=== PATIENT | female | born 2000 | race Asian ===

== ENCOUNTER 2024-11-14 19:22 | Emergency (ER) | payer OTHER, SELFPAY ==
--- NOTE | ~2024-11-14 | CT_ITS ---
EXAMINATION: CT brain wo con DATE: 11/14/2024 20:38 INDICATION: Head injury . TECHNIQUE: Computed tomography (CT) of the head was performed without intravenous contrast. The mA wa s adjusted according to patient size. Iterative reconstruction technique was employed. The dose-lengt h product was 605.33 mGy-cm. COMPARISON: None. FINDINGS: No acute intracranial hemorrhage or extra-axial fluid collection. No hydrocephalus, mass, or herniation. No acute ischemic infarct. Unremarkable dural venous sinus attenuation. No acute osseous abnormality. Left posterior scalp lipoma. Minimal right ethmoid mucosal thickening, the remaining aerated spaces are clear. IMPRESSION: No acute intracranial process. Reviewed, dictated and finalized at location K. ITY MEASUREMENT SPECIALIST
--- NOTE | ~2024-11-14 | CT_ITS ---
EXAMINATION: CT cervical spine wo con DATE: 11/14/2024 20:40 INDICATION: Neck pain status post head injury TECHNIQUE: Computed tomography (CT) of the cervical spine was performed without intravenous contrast. Automated exposure control and iterative reconstruction technique were employed. The dose-length pro duct was 136.40 mGy-cm. COMPARISON: None. FINDINGS: Vertebral Body Alignment: Intact. Reversal of the normal cervical lordosis. Craniocervical and atlantoaxial alignment: No significant degenerative change. Alignment intact. Osseous structures/fracture: No evidence of a lytic or blastic process in the visualized spine. No e vidence of acute fracture. Cervical soft tissues: The paraspinal soft tissues planes are maintained. Degenerative changes: No significant degenerative changes. IMPRESSION: No acute fracture or traumatic malalignment in the cervical spine. Reviewed, dictated and finalized at location K. INE KEY CUSTOMER LEADER
[2024-11-14 19:29] VITALS: BP 111/76; PULSE 81; RESP 16; TEMP 36.2; O2SAT 100
--- NOTE | 2024-11-14 20:05 | PC.NURSE ---
pt in c-collar
--- NOTE | 2024-11-14 20:17 | ED_ITS ---
HPI - General Adult General Chief complaint: Head Injury Stated complaint: i think i have a concussion Time Seen by Provider: 11/14/24 20:03 History of Present Illness HPI narrative: Patient 24-year-old female who presents emergency department with chief complaint of head injury and neck pain. Patient reports she was playing soccer at her head against a wall and reports that she had a tingling sensation in her neck. Patient denies bowel or bladder incontinence denies weakness in her arms or legs. Patient reports that she has continued out little bit headache afterwards and decided to come the emergency department as she was concerned she may have a concussion Related Data Allergies Allergy/AdvReac Type Severity Reaction Status Date / Time No Known Allergies Allergy Verified 11/14/24 19:24 Review of Systems Review of Systems: A 10 system review of systems was completed on the patient and is negative except for what is stated in the HPI. Nursing and ancillary documentation was reviewed. Exam Narrative: GENERAL: Well-appearing, well-nourished, and in no acute distress. HEAD: Normocephalic, atraumatic. EYES: PERRLA and EOMI. ENT: Nares clear, no rhinorrhea or epistaxis. Mucous membranes moist. NECK: Supple. CHEST: Clear to auscultation. No respiratory distress. HEART: Regular rate and rhythm. No murmur heard. Normal peripheral pulses. ABDOMEN: Soft, nontender, nondistended, normal active bowel sounds. EXTREMITIES: Normal range of motion. No edema. SKIN: Warm, dry, no rash. NEURO: No focal deficits. Alert and oriented x3. PSYCH: Normal mood and affect. Course Vital Signs Vital signs: Vital Signs Temperature 36.2 C L 11/14/24 19: Pulse Rate 81 11/14/24 19:29 Respiratory Rate 16 11/14/24 19:29 Blood Pressure 111/76 11/14/24 19:29 Pulse Oximetry 100 11/14/24 19:29 Temperature 36.2 C L 11/14/24 19:29 Pulse Rate 81 11/14/24 19:29 Respiratory Rate 16 11/14/24 19:29 Blood Pressure 111/76 11/14/24 19:29 Pulse Oximetry 100 11/14/24 19:29 Medical Decision Making MDM Narrative Medical decision making narrative: Differential diagnosis includes concussion, cervical spine fracture CT head was negative CT C-spine was negative Vital Signs Vital Signs: Vital Signs Temperature 36.2 C L 11/14/24 19:29 Pulse Rate 81 11/14/24 19:29 Respiratory Rate 16 11/14/24 19:29 Blood Pressure 111/76 11/14/24 19:29 Pulse Oximetry 100 11/14/24 19:29 Temperature 36.2 C L 11/14/24 19:29 Pulse Rate 81 11/14/24 19:29 Respiratory Rate 16 11/14/24 19:29 Blood Pressure 111/76 11/14/24 19:29 Pulse Oximetry 100 11/14/24 19:29 Discharge Plan Discharge Clinical Impression: Head injury, Cervical strain Patient Disposition: Home, Self-Care Condition: Stable Instructions: Antibiotic Form, Cervical Strain (ED), Head Injury (ED) Patient Language: Surinamese Follow-up/Referrals: PHYSICIAN NOT ON STAFF,NONSTAFF [Primary Care Provider] - Time of Disposition: 20:53
--- NOTE | 2024-11-14 20:32 | PC.NURSE ---
pt being ambulated to ct at this time with health and wellness instructor. no distress noted. pt refused wheelchair.
--- OUTSIDE RECORDS SUMMARY | 2024-11-14 21:02 | XMS_ITS | Continuity of Care Document ---
Author Organization [facility] Address [address] [place] [address] Phone Care Team Providers Care Athletic Instructor Name Role Phone Lea Ontiveros OT Unavailable Unavailable Procedures Procedure Date Identified as unhealthy alcohol user Oct Identified as unhealthy alcohol user rcv d counseling Unhealthy alcohol via screening rcvd cou nseling OT Evaluation Low Complexity Therapeutic Activities Neuromuscular Re-Ed Therapeutic Exercise Manual Therapy Hot or Cold Pack Advance Directives Directive Yes / No Effective Date File Name No Information Encounters Encounter Description Practice Location Reason(s) For Visit Diagnoses Date Provider Providers Copied on Encounter [facility], [place], [place], [id number], tel:[phone] [place] No Information 5 Rama Tate. . [facility], [address], [place], [place], [id number], tel:[phone] [place] No Information 5 Rama Tate. . Referring Provider: Sunshine Keane, [address] [place] [address] [address], [place], [address]. tel:[phone] Family History Family Member Type Diagnosis Age At Onset No Information Payers Payer name Insurance type Covered alliance party ID Julio cantu(s) [employer] CI [id number] Social History Type Description Quantity Date Captured Comments Sex Female Smoking Status No Information Chief Complaint And Reason For Visit No Information Reason For Referral Reason For Referral No Information Plan Of Treatment Date Type Action Status Appointment Marline Ferraro BOOKED Appointment Marline Ferraro BOOKED Appointment Marline Ferraro BOOKED Appointment Marline Ferraro BOOKED Appointment Marline Ferraro BOOKED Appointment Marline Ferraro BOOKED History Of Present Illness Encounter Date Complaint History Of Prese nt Illness No Information Functional Status Date Functional Assessmen t No Information Instructions Date Instruction Additional Infor mation No Information Assessments Type Assessment Date No Information Patient Care Teams Name Effective Dates (start - stop) Status Members No Information
--- OUTSIDE RECORDS SUMMARY | 2024-11-14 21:02 | XMS_ITS | Continuity of Care Document ---
Author Organization [facility] Address [address] [place] [address] Care Team Providers Care Vice President Of Human Resources Name Role Phone KITA BENNETTY Primary Care Provider Assessment No assessment recorded. Plan of Treatment Reminders Order Date Submit Date Provider Last Modified By Organization Details Last Modified Time Details Appointments Imaging 5.PRO 2024 02:30P M Radiology Not available Not available [facility] 04:00P M Dr. Kayley Martinez Not available Not available [facility] 15.EST 2024 11:15A M Karina Fischer Not available Not available Not available [facility] Visit 15.EST 2024 11:30A M Dr. Bel Coto Not available Not available Not available Lab None recorde d. Referral None recorde d. Procedures None recorde d. Surgeries None recorde d. Imaging None recorde d. Medication Orders None recorde d. Patient TargetsNo targets recorded. Patient InstructionsNo instructions recorded. Reason for Referral None Reported. 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 ELECTROMYOGRAPHIC TECHNICIAN [address] [place] [address], [phone], [facility] 5 13:18:46 Severe depression 699813017 Active 2023 Bel shea MD [address] [place] [address], [phone], [facility] 4 15:01:31 Vulvovagini tis 45852677 [facility] 4 15:31:27 Ingrowing nail 725088559 Active 2023 Sunshine Mcgrath, DPM [address] [place] [address], [phone], [facility] 4 11:13:51 Ingrowing toenail 207979367 Active 2023 Sunshine Mcgrath, DPM [address] [place] [address], [phone], [facility] 4 10:18:16 Postsurgica l menopause 392767805 Active 2024 [facility] 5 14:54:11 Problem Notes None recorded. Procedures Surgical History Date Name Laterality Status Provider Name and Address Organization Details Recorded Time 07/04/20 24 Partial Matrixectomy MS completed Sunshine Mcgrath, DPM [address] [place] [address], [phone], [facility] 07/04/2024 11:13:44 hysterectomy [address] Neal [facility] 06/14/2024 14:46:25 Imaging Results None recorded. Procedure Notes None recorded. Medical Equipment None Reported. Allergies No known drug allergies Medications Name Sig Start Date Stop Date Status Note LastModified by Organization Details LastModified Time silver sulfadiazin e 1 % topical cream APPLY TO AFFECTED AREA TWICE A DAY active Not Available Not Available No t Available escitalopra m 10 mg tablet TAKE 1 TABLET BY MOUTH EVERY DAY 04/25 completed Not Available Not Available Not Available escitalopra m 20 mg tablet TAKE 1 TABLET BY MOUTH EVERY DAY active Not Available Not Available No t Available Vitals Date Recorded Body height Provider Name an d Address Organization Details Last Updated DateTime 11/13/2024 162.56 cm Edi Dotson [facility] 11/13/2024 12:09:50 Social History Question Answer Notes LastModified by Organizat ion Details LastModified Time Tobacco Smoking Status Never [facility]oker [facility]/14/2024 14:33:04 Do You Have An Advance Directive? No [email or web address] Information not available 05/04/2024 What Is Your Level Of Alcohol Consumption? Occasional [email or web address] Information not available 05/04/2024 How Many Times Per Week Do You Consume Alcohol? 1-2 Times Per Week [email or web address] Information not available 05/04/2024 What Is Your Level Of Caffeine Consumption? Occasional [email or web address] Information not available 05/04/2024 Are You Currently Employed? 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 3-4 Times Per Week [email or web address] Information not available 05/04/2024 Do You Have A Medical Power Of Java Web Engineer? No [email or web address] Information not available 05/04/2024 What Was The Date Of Your Most Recent Tobacco Screening? 05/11/2024 [email or web address] Information not available 05/04/2024 What Is Your Relationship Status? Single [email or web address] Information not available 05/04/2024 Do You Use Any Illicit Or Recreational Drugs? No [email or web address] Information not available 05/04/2024 Sex: Unknown Functional Status Question Answer Note LastModified by Organization D etails LastModified Time What is your exercise level? Moderate [email or web address] Information not available 05/04/2024 Mental Status None recorded. Family History Relationship Description Onset Age of this Age Resolved Age Notes LastModified by Organization Details LastModified Time Father No current problems or disability [email or web address] Not available 05/04 12:25:54 Mother No current problems or disability [email or web address] Not available 05/04 12:25:54 Notes:Patient adopted - fami ly hx unknown Medical History Condition Response High Blood Pressure N COPD N Depression N Anxiety Disorder N Arthritis N Cancer N Stroke N Fibromyalgia N Kidney Disease N Attention-deficit Hyperactivity Disorder N Thyroid Problems N Anemia N Diabetes N Bleeding Disorder N Hyperlipidemia N Asthma N Seizures N Heart Disease N Osteoporosis N Gynecological HistoryNo gynecological history recorded. Obstetrics History GPAL:G 0 P 0 0 0 0 Past Encounters Encounter ID Performer Location Encounter Start Date Encounter Closed Date Diagnosis/Indication Diagnosis SNOMED-CT Code Diagnosis ICD10 Code Diagnosis Note [id number] Karina Fischer APRN, DNP. [facility] [place] [facility] [address] [place] [address] 11/13/2024 12:04:11 11/13/2024 12:24:27 Impacted cerumen of bilateral ears 8653895888 [id number] H61.23 Cerumen removed under microscopy . Patient tolerated procedure well. Discussed water precaution s and not using Q tips to clean the ears. Patient will follow up in 6 months. They are welcome to call the office if they develops problems sooner. Health Concerns Section Related Observation LastModified by Organization Detai ls LastModified Time None Recorded Concern Status LastModified by Organization Details LastModified Time None Recorded Payers Encounter Date Sequence Insurance Name Policy Number Policy Naik Covered Member ID Naik Member ID Guarantor Name 11/13/2024 1 [facility] BEN[employer] PLAN [id number] Margaret Ferraro [id number] SELENE Ferraro Notes Date Note Type Note Provider Name and Address Organization Details Recorded Time 11/13/2024 text/html 24-year-old female seen in ENT for an ear cleaning. She denies any otalgia or otorrhea. She denies any decline in her hearing. Karina Fischer APRN, DNP. ELECTROMYOGRAPHIC TECHNICIAN [address] [place] [address], [phone], [facility] 11/13/2024 16:16:07 OBGyn Episode No OBEpisode recorded.
--- OUTSIDE RECORDS SUMMARY | 2024-11-14 21:02 | XMS_ITS | Data Portability ---
Author Organization [facility], [address] Neurology ([place]) Address [address] [place] [address] Care Team Providers Care Professional Organizer Name Role Phone KIT BENNETT Primary Care Provider Assessment Encounter Date Assessment Date Assessment LastModified by Organization Details LastModified Time 09/26/2024 09/26/2024 ASSESSMENT: This is a 24-year-old with a history of a stage IB low-grade endometrial stromal sarcoma now approximately 2 years out from treatment, with indeterminate CT scan findings. PLAN: 1. Low-grade endometrial stromal sarcoma: I reviewed her CT scan report with her today. I explained that overall findings appear reassuring. There is 1 minimally enlarged lymph nodes within the mesentery along the right lower quadrant and as such we will plan to repeat CT scan at 3 months. The patient s CA-125 level from today is pending. 2. History of iron deficiency anemia: The patient is now off supplementation. The patient was reassured that her recent iron panel was within normal limits. 3. Surgical menopause: The patient was on escitalopram but has now stopped using it and does not report any recurrence of her hot flashes. She also reports that she feels her anxiety is being well controlled with her current management strategies and would prefer not to restart it. As such, we will continue with observation. The patient was previously counseled on taking multivitamins and calcium on a daily basis. She will be referred to a health analyst and bone health clinic at an early age secondary to her early menopause status. Marline voiced understanding and was in agreement. We will plan to see her back in [address] scan. [email or web address] [email or web address] Not available 09/27/2024 14:54:31 Plan of Treatment Reminders Order Date Submit Date Provider Last Modified By Organization Details Last Modified Time Details Appointments Imaging 5.PRO 2024 02:30P M Radiology Not available Not available Not available Est[facility] shed Patient 20.EST 2024 04:00P M Dr. Kayley Martinez Not available Not available Not available Estabjessa shed Patient 15.EST 2024 11:15A M Karina Fischer [...] instructions recorded. Reason for Referral None Reported. Results Created Date Observation Date Name Description Value Unit Range Abnormal Flag Note LastModifiedBy Organization Detail LastModifiedTime 09/26/19 25 09/26/2024 ca 125, serum Ca 125 4 U/mL <2-35 This test is perfo rmed on a HITbillse ns Atell ica violet zer. Since there are not exist ing stand sofia refer ence units , users shoul d not make emily rison s lindsay en janie ds. Not Available [place] [facility] [address], [address], 09/26/2024 16:57:42 09/26/19 25 09/26/2024 CT, abdom en + pelvi s, w/ contr ast [address] [address] Teleph wuv Name: Chino Titus [id number] am Date: 2024 Age: 24Phys ician: Iris bhandari MD, Kayley : 2000Ex aminat ion: CT CHEST/ ABD/PE L W EXAM: CT ABD/PE L W, CT CHEST W, Isovue 370, per ml HISTOR Y: Endome trial stroma l sarcom a. Myomec anita in [facility] er 2021. FINDIN GS: Axial CT images of the chest, abdome n, and pelvis were obtain ed after uneven tful IV initia tion 100 mL Isovue -370 given in the right antecu bital fossa. Compar ovi 11/23/19 24. Thorac ic aorta and great vessel s normal . Heart normal . No suprac lavicu lar, axilla ry, medias tinal, or hilar adenop athy. No pleura l effusi on. Lungs are clear and expand ed. Centra l airway s are clear. Liver, gallbl adder, spleen , pancre as, adrena l glands , and kidney s normal . Stomac h and small bowel normal . Append ix normal . Colon normal . No bowel obstru ction or signif icant stool burden . Bladde r normal . Uterus normal . There is no adnexa l mass. Normal vascul ar enhanc ement. No mass, free fluid, or inflam matory strand ing. Normal vascul ar enhanc ement. There is a 1 cm right lower quadra nt mesent simran lymph node new from prior along with 2 additi onal less than 1 cm lymph nodes in the right lower quadra nt slight ly increa sed in size from prior. No acute osseou s findin g. IMPRES ALEX: 1. No acute findin g or eviden ce of metast atic diseas e in the chest. 2. Single minima lly enlarg ed right lower quadra nt mesent simran lymph node from prior. Recomm end a follow -up CT in 6 months . Electr onical ly signed in [facility] by: KIAH HALE MD on:09/26 12:13 PM cc: Page PAGE 1 of [facility] ES 1 nmaczura Sc Only - Sc Radiology [address] [place], [address], 09/26/2024 15:34:53 09/26/19 25 09/26/2024 CT, chest , w/ contr ast [address] [address] Teleph one [phone] Name: Chino Titus [id number] am Date: 2024 Age: 24Phys ician: Iris bhandari MD, Kayley : 2000Ex aminat ion: CT CHEST/ ABD/PE L W EXAM: CT ABD/PE L W, CT CHEST W, Isovue 370, per ml HISTOR Y: Endome trial stroma l sarcom a. Myomec anita in [facility] er 2021. FINDIN GS: Axial CT images of the chest, abdome n, and pelvis were obtain ed after uneven tful IV initia tion 100 mL Isovue -370 given in the right antecu bital fossa. Compar ovi 11/23/19 24. Thorac ic aorta and great vessel s normal . Heart normal . No suprac lavicu lar, axilla ry, medias tinal, or hilar adenop athy. No pleura l effusi on. Lungs are clear and expand ed. Centra l airway s are clear. Liver, gallbl adder, spleen , pancre as, adrena l glands , and kidney s normal . Stomac h and small bowel normal . Append ix normal . Colon normal . No bowel obstru ction or signif icant stool burden . Bladde r normal . Uterus normal . There is no adnexa l mass. Normal vascul ar enhanc ement. No mass, free fluid, or inflam matory strand ing. Normal vascul ar enhanc ement. There is a 1 cm right lower quadra nt mesent simran lymph node new from prior along with 2 additi onal less than 1 cm lymph nodes in the right lower quadra nt slight ly increa sed in size from prior. No acute osseou s findin g. IMPRES ALEX: 1. No acute findin g or eviden ce of metast atic diseas e in the chest. 2. Single minima lly enlarg ed right lower quadra nt mesent simran lymph node from prior. Recomm end a follow -up CT in 6 months . Electr onical ly signed in [facility] by: KIAH HALE MD on:09/26 12:13 PM cc: Page PAGE 1 of [facility] 1 nm[facility]zura Sc Only - Sc Radiology [address] [place] [address], [id number], 09/26/2024 15:34:53 Result Notes None recorded. Problems Name Problem SNOMED Code Status Onset Date Resolution Date Notes Provider Name and Address Organization Details Recorded Time Endometrial stromal sarcoma 768471840 Active 2023 Michelle Rothman null, [facility] 4 17:52:47 Fatigue 13181315 Active 2023 Yanni Maddox null, [facility] 4 11:43:32 Endometrioi d carcinoma of endometrium Active 2023 Rufino Renae null, [facility] 4 14:35:00 Ingrowing nail of toe of left foot 8939845346166 9107 Active 2023 Sunshine Mcgrath, DPM [address] [place] [address], [address], [facility] 4 12:52:29 Impacted cerumen of bilateral ears 0783483132753 108 Active 2023 Karina Fischer, CENTRAL COMMUNICATIONS SPECIALIST, DNP. [employer] [address] [place] [address], [address], [facility] 5 13:18:46 Severe depression 401451359 Active 2023 Bel shea MD [address] [place] [address], [address], [facility] 4 15:01:31 Vulvovagini tis 32664688 Active 2023 Mercedes Garcia null, [facility] 4 15:31:27 Ingrowing nail 325848369 Active 2023 Sunshine Mcgrath, DPM [address] [place], [address], [facility] 4 11:13:51 Ingrowing toenail 221472933 Active 2023 Sunshine Mcgrath, DPM [address] [place] [address], [address], [facility] 4 10:18:16 Postsurgica l menopause 245445954 Active 2024 [facility] 14:54:11 Problem Notes None recorded. Procedures Surgical History Date Name Laterality Status Provider Name and Address Organization Details Recorded Time 07/04/20 Partial Matrixectomy MS completed Sunshine StewartChinedu Delgadoes, DPM [address] [place] [address], [phone], [place] [facility] 07/04/2024 11:13:44 hysterectomy completed Jaclynchrist Neal [facility] 06/14/2024 14:46:25 Imaging Results Imaging Date Name Status LastModified by Organiz ation Details LastModified Time 09/26/2024 CT, abdomen + pelvis, w/ contrast completed [facility] Sc Only - Sc Radiology [address] [place] [address], [id number], 09/26/2024 15:34:53 09/26/2024 CT, chest, w/ contrast completed nm[facility]zura Sc Only - Sc Radiology [address] [place] [address], [id number], 09/26/2024 15:34:53 Procedure Notes None recorded. Medical Equipment None [...] t Available Vitals Date Recorded Body height Oxygen saturation Oxygen saturation in Arterial blood by Pulse oximetry Heart rate Body temperature Body mass index (BMI) Body weight Systolic blood pressure Diastolic blood pressure Provider Name and Address Organization Details Last Updated DateTime 5 162.56 cm 98 % 98 % 73 /min 98.8 [degF] 21.3 kg/m2 03304.4 5 g 102 mm[Hg] 58 mm[Hg] Michelle Rothman [facility] 5 14:15:32 Date Recorded Body height Provider Name an d Address Organization Details Last Updated DateTime 11/13/2024 162.56 cm Edi Dotson [facility] 11/13/2024 12:09:50 Social History Question Answer Notes LastModified by Organizat ion Details LastModified Time Tobacco Smoking Status Never Smoker Jaclyn Neal crystal, [facility] 06/14/2024 14:33:04 Do You Have An [...] not available 05/04/2024 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 3-4 Times Per Week [email or web address] Information not available 05/04/2024 Do You Have A Medical Power Of Air Export Agent? No [email or web address] Information not available 05/04/2024 What [...] ly hx unknown Medical History Condition Response Attention-deficit Hyperactivity Disorder N High Blood Pressure N Thyroid Problems N COPD N Depression N Anemia N Diabetes N Anxiety Disorder N Bleeding Disorder N Arthritis N Hyperlipidemia N Cancer N Stroke N Asthma N Seizures N Heart Disease N Fibromyalgia N Osteoporosis N Kidney Disease N Gynecological HistoryNo gynecological history recorded. Obstetrics History GPAL:G 0 P 0 0 0 0 Past Encounters Encounter ID Performer Location Encounter Start Date Encounter Closed Date Diagnosis/Indication Diagnosis SNOMED-CT Code Diagnosis ICD10 Code Diagnosis Note [id number] Kayley Martinez MD [address] Gynecolog ic Oncology ([place]) [address] [place] [address] 04/25/2024 10:56:40 05/02/2024 04:51:56 Endometrioid carcinoma of endometrium 7704432867 C54.1 [id number] Sunshine Mcgrath DPM [address] Podiatry ([place]) [address] [place] [address],[address] [place] [address] 05/11/2024 11:56:47 05/11/2024 12:53:42 Ingrowing nail of toe of left foot 1578172019 7576067 L60.0 [id number] Karina Fischer, CENTRAL COMMUNICATIONS SPECIALIST, DNP. [employer] [facility] 4[facility] ENT ([place]) [address] [place] [address] 05/18/2024 11:34:11 05/18/2024 12:55:15 Impacted cerumen of bilateral ears 6531531974 565945 H61.23 Cerumen removed under microscopy . Patient tolerated procedure well. Discussed water precaution s and not using Q tips to clean the ears. Patient will follow up in 6 months. They are welcome to call the office if they develops problems sooner. [id number] Charlene Draper [address] OBGYN ([place]) [address] [place] [address],[address] [address] 06/14/2024 14:23:36 06/14/2024 15:19:16 Severe depression 687162846 F32.2 Gynecologi c examination 06681458 Z01.419 Additional diagnosis detail: Encounter for gynecologi charley examinatio n Vulvovaginitis 47730652 N76.89 [id number] Sunshine Mcgrath DPM [address] Podiatry ([place]) [address] [place] [address] 07/04/2024 09:47:54 07/04/2024 11:14:47 Ingrowing nail 506617250 L60.0 Additional diagnosis detail: Ingrown nail [id number] Sunshine Mcgrath, DPM [address] [facility]ry ([place]) [address] [place] [address] 07/18/2024 16:13:40 07/18/2024 16:39:35 Ingrowing nail 021772776 L60.0 Additional diagnosis detail: Ingrown nail [id number] Sunshine Mcgrath, DPM [address] Podiatry ([place]) [address] [place] [address] 08/01/2024 12:19:19 08/01/2024 13:05:53 Ingrowing nail of toe of left foot 2063172105 4932035 L60.0 [id number] Sunshine Mcgrath, DPM 800 [facility] Podiatry ([place]) [address] [place] [address],[address] [place] [address] 08/15/2024 09:53:38 08/15/2024 10:18:50 Ingrowing toenail 200342850 L60.0 [id number] Kayley Martinez MD [address] Gynecolog ic Oncology ([place]) [address] [place] [address] 09/26/2024 13:59:17 10/05/2024 07:59:39 History of malignant neoplasm 434359339 Z85.42 History of anemia 160615 002 Z86.2 Postsurgic al menopause 810482494 E89.40 [id number] Karina Fischer, CENTRAL COMMUNICATIONS SPECIALIST, DNP. [employer] [address] ENT ([place]) [address] [place] [address] 11/13/2024 12:04:11 11/13/2024 12:24:27 Impacted cerumen of bilateral ears 0477141834 506136 H61.23 Cerumen removed under microscopy . Patient [...] by Organization Details LastModified Time None Recorded Advance Directives Directive N: Payers Encounter Date Sequence Insurance Name Policy Number Policy Naik Covered Member ID Naik Member ID Guarantor Name 07/18/2024 1 [employer] [facility] [employer] [id number] Margaret Ferraro [id number] OI Roberttatum Ferraro 08/01/2024 1 [employer] [facility] [employer] [id number] Margaret Ferraro [id number] OI Marline Ferraro 08/15/2024 1 [employer] [facility] [employer] [id number] Margaret Ferraro [id number] OI Marline Ferraro 09/26/2024 1 [facility] [id number] Margaret Ferraro [id number] OI Marline Ferraro 11/13/2024 1 [facility] BENEFITS PLAN [id number] Margaret Ferraro [id number] OI Roberttatum Ferraro Notes Date Note Type Note Provider Name and Address Organization Details Recorded Time 4 text/html Marline Alex a 24 year oldfemalepresenting for care. Sunshine Rangel Alcides, OLGA [address] [place] [address], [phone], [facility] 07/18/2024 16:35:21 4 text/html Marline Alex a 24 year oldfemalepresenting for care. Sunshine Rangel OLGA Mcgrath [address] [place] [address], [phone], [facility] 08/15/2024 10:18:29 5 text/html This is a 24-year-old female with a stage IB low-grade endometrial stromal sarcoma who presents today for a 4-month surveillance visit and review of CT scan. Today in the office, Marline is here by herself. She has her mom and dad on speaker phone. In general, she reports that she has been doing well. She denies any issues with vaginal bleeding or discharge. She has intermittent mild twinges of pain along her right side that she attributes to her scar. Otherwise, she has no nausea or vomiting. She does state that she has not been taking the escitalopram but does feel that her anxiety levels have been well controlled and she has been doing lifestyle modifications to help manage this. She denies any issues with hot flashes. Onc Therapy 08/31/22: EL/ abdominal myomectomy Pathology: low grade endometrial stromal sarcoma 09/10/22: CT c/a/p shows large surgical defect involving the left lateral portion of the uterus with postoperative fluid collection and adjacent ascites, no peritoneal disease or metastatic lymphadenopathy 10/09/22: EL/JOHNNY/BSO/SHARON Pathology: low grade stromal sarcoma with patchy myometrial involvement, measuring 4.2 cm, + LVSI 04/27/23: CT c/a/p shows no evidence of local recurrence or metastatic disease 11/23/23: CT c/a/p shows no evidence of local recurrence or metastatic disease, CA-125 4 09/26/24: CT c/a/p shows minimally enlarged mesenteric lymph node in RLQ, chest clear Kayley Martinez MD [address] [place] [address], [phone], [facility] 10/04/2024 15:52:13 5 text/html 24-year-old female seen in ENT for an ear cleaning. She denies any otalgia or otorrhea. She denies any decline in her hearing. Karina Fischer APRN, DNP. [employer] [address] [place] [address], [phone], [facility] 11/13/2024 16:16:07 OBGyn Episode No OBEpisode recorded.
--- OUTSIDE RECORDS SUMMARY | 2024-11-14 21:02 | XMS_ITS | Clinical Summary ---
Author Organization [facility] Address [address] [place] [address] Care Team Providers Care Glycerin Operator Name Role Phone None, Provider MD Primary Care Provider Unavaila ble Allergies No known active allergies Medications No known medications Active Problems Problem Noted Date Diagnosed Date Head injury without concussion or intracranial h emorrhage 12/15/2021 Resolved Problems Problem Noted Date Diagnosed Date Resolved Date COVID-19 11/21/2020 12/15/2021 Sports physical 11/21/2020 12/15/2021 Immunizations Name Administration Dates Next Due HPV GARDASIL 9-VALENT 05/24/2018 HPV4 (Gardasil) 01/09/2019,04/21/2018 Menactra 01/09/2019 Meningococcal (Menactra) 04/07/2016 Varicella Vaccine 03/26/2015 Social History Tobacco Use Types Packs/Day Years Used Date Smoking Tobacco: Never Smokeless Tobacco: Never Alcohol Use Standard Drinks/Week Comments Never 0 (1 standard drink = 0.6 oz pur e alcohol) Comments No Sex and Gender Information Value Date Recorded Sex Assigned at Not on file Legal Sex Female 1:46 PM [employer] Gender Identity Not on file Sexual Orientation Not on file Last Filed Vital Signs Vital Sign Reading Time Taken Comments Blood Pressure 120/80 12/23/2021 9:53 AM CDT Pulse 64 12/23/2021 9:53 AM CDT Temperature 36.6 C (97.8 F) 12/23/2021 9:53 AM CDT Respiratory Rate 12 12/23/2021 9:53 AM CDT Oxygen Saturation 99% 12/23/2021 9:53 AM CDT Inhaled Oxygen Concentration - - Weight 60.8 kg (134 lb) 12/23/2021 9:53 AM CDT Height 162.6 cm (5' 4 ) 12/23/2021 9:53 AM CDT Body Mass Index 23 12/23/2021 9:53 AM CDT Plan of Treatment Health Maintenance Due Date Last Done Comments Cervical Cancer Screening Pa p Smear (Age 21 to 29) Every 3 Years 2001 Cervical Cancer Screening 2001 Annual Physical 2004 Meningococcal B Vaccine (1 o f 2 - Standard) 2017 Hepatitis C 2019 DTaP, Tdap and Td Vaccines ( 1 - Tdap) 2020 Hepatitis B Vaccines (1 of 3 - 19+ 3-dose series) 2020 COVID-19 Vaccine (4 - 2023-2 5 season) 2024 10/03/2021, 03/22/2021, 02/22/2021 Influenza Adult (#1) 2024 HPV Vaccines Completed 01/09/2019, 05/24/2018, 04/21/2018 Meningococcal Vaccine Completed 01/09/2019 , 04/07/2016 Pneumococcal Vaccine: Pediatrics (0 to 5 Years) and At-Risk Patients (6 to 64 Years) Aged Out No longer eligible b ased on patient's age to complete this topic RSV Immunizations Under 20 Months Aged Out No longer eligible b ased on patient's age to complete this topic Insurance [employer] OPEN ACCESS [facility] Care Teams Glycerin Operator Relationship Specialty Start Date End Date None, Provider, PCP - General 12/15/21
--- OUTSIDE RECORDS SUMMARY | 2024-11-14 21:02 | XMS_ITS | Referral Summary ---
Author Organization [facility] Address [address] [place] [address] Care Team Providers Care Driver Courier Name Role Phone Beck Del Rio MD Primary Care Provider [phone] Encounters Date Type Department Care Team Description 10/31/2024 3:20 PM LINE REPAIRER TOWER Ancillary Procedure [facility] Medical Group Imaging at [address] [phone] 10/31/2024 2:55 PM LINE REPAIRER TOWER Ancillary Procedure [facility] Imaging at [address] [phone] 10/31/2024 2:45 PM LINE REPAIRER TOWER Office Visit [facility] Medical [facility] Orthopedic and Sports Medicine [address] [place] [phone] Sunshine Keane PA Other closed extra-articular fracture of distal end of right radius with routine healing, subsequent encounter (Primary Dx); TFCC (triangular fibrocartilage complex) injury, right, initial encounter 10/02/2024 12:03 PM LINE REPAIRER TOWER - 10/02/2024 11:59 PM LINE REPAIRER TOWER Hospital Encounter [facility] [address] [place] [phone] Discharge Disposition: Discharge to home or self care 10/02/2024 11:42 AM LINE REPAIRER TOWER - 10/02/2024 11:59 PM LINE REPAIRER TOWER Hospital Encounter [facility] Medicine [address] [place] [phone] Discharge Disposition: Discharge to home or self care 10/02/2024 11:00 AM LINE REPAIRER TOWER Office Visit [facility] Medicine [address] [place] [address] [place] [phone] Mikhail Buenrostro MD Other closed extra-articular fracture of distal end of right radius, initial encounter (Primary Dx); Right wrist pain 10/02/2024 Telephone [facility] Orthopedics and Sports Medicine [address] [facility] [address] [place] [phone] Veronika Espinosa MA from Last 3 Months Allergies No known active allergies Medications No known medications Active Problems Problem Noted Date Diagnosed Date Closed fracture of right distal radius Social History Tobacco Use Types Packs/Day Years Used Date Smoking Tobacco: Never Smokeless Tobacco: Never Tobacco Cessation:Counseling Given: Not Answered AUDIT-C Answer Date Recorded Q1: How often do you have a drink containing alc ohol? 2-3 times a week 10/02/2024 Q2: How many drinks containi ng alcohol do you have on a typical day when you are drinking? 3 or 4 10/02/2024 Q3: How often do you have si x or more drinks on one occasion? Weekly 10/02/2024 Comments Unknown Sex and Gender Information Value Date Recorded Sex Assigned at Not on file Legal Sex Female 5:16 PM CDT Gender Identity Not on file Sexual Orientation Not on file Last Filed Vital Signs Vital Sign Reading Time Taken Comments Blood Pressure 107/72 10/31/2024 3:00 PM LINE REPAIRER TOWER Pulse 108 10/31/2024 3:00 PM LINE REPAIRER TOWER Temperature 36.9 C (98.4 F) 06/12/2022 10:00 PM CDT Respiratory Rate 15 06/12/2022 10:00 PM CDT Oxygen Saturation 98% 06/12/2022 10:00 PM CDT Inhaled Oxygen Concentration - - Weight 57.6 kg (127 lb) 10/31/2024 3:00 PM LINE REPAIRER TOWER Height 162.6 cm (5' 4 ) 10/31/2024 3:00 PM LINE REPAIRER TOWER Body Mass Index 21.8 10/31/2024 3:00 PM LINE REPAIRER TOWER Plan of Treatment Not on file Procedures Procedure Name Priority Date/Time Associated Diagnosis Comments XR WRIST LEFT 2 VIEWS Schedule Routine, Read Routine (OP Routine) 10/31/2024 3:27 PM LINE REPAIRER TOWER Other closed extra-articular fracture of distal end of right radius with routine healing, subsequent encounter XR WRIST RIGHT 3 OR MORE VIEWS Schedule Routine, Read Routine (OP Routine) 10/31/2024 2:59 PM LINE REPAIRER TOWER Other closed extra-articular fracture of distal end of right radius with routine healing, subsequent encounter XR WRIST RIGHT 3 OR MORE VIEWS Routine 10/02/2024 1:43 PM LINE REPAIRER TOWER Other closed extra-articular fracture of distal end of right radius, initial encounter XR WRIST RIGHT 3 OR MORE VIEWS Routine 10/02/2024 12:00 PM LINE REPAIRER TOWER Right wrist pain from Last 3 Months Results * XR Wrist Left 2 Views (10/31/2024 3:27 PM LINE REPAIRER TOWER) Anatomical Region Laterality Modality Upper Extremities, Wrist Left Digital Radiography Narrative 10/31/2024 7:54 PM LINE REPAIRER TOWER Consent comparison views of the left wrist were obtained further assess spacing within the distal radioulnar joint. No acute bony fractures, malalignment, or destructive osseous lesions are seen. Sunshine HYDE IMG XR PROCEDURES Final Result * XR Wrist Right 3 (Standard) (10/31/2024 2:59 PM LINE REPAIRER TOWER) Anatomical Region Laterality Modality Upper Extremities, Wrist Right Digital Radiography Narrative 10/31/2024 7:54 PM LINE REPAIRER TOWER Images of the right wrist reviewed, interpreted, and compared with previous views. Nondisplaced extra-articular distal radius fracture is appreciated with presence of interval callus formation. Patient has negative ulnar variance. Mikhail Buenrostro MD IMG XR PROCEDURES Final Resu lt * XR Wrist Right 3 or More Views (10/02/2024 1:43 PM LINE REPAIRER TOWER) Anatomical Region Laterality Modality Upper Extremities, Wrist Right Digital Radiography Narrative 10/02/2024 3:14 PM LINE REPAIRER TOWER minimally displaced metaphyseal fracture extra-articular mild dorsal displacement unchanged from pre Exos radiograph. Exos in place Mikhail Buenrostro MD IMG XR PROCEDURES Final Resu lt * XR Wrist Right 3 or More Views (10/02/2024 12:00 PM LINE REPAIRER TOWER) Anatomical Region Laterality Modality Upper Extremities, Wrist Right Digital Radiography Narrative 10/02/2024 12:00 PM LINE REPAIRER TOWER Right wrist show skeletally mature radiographs a minimally displaced metaphyseal fracture extra-articular mild dorsal displacement Mikhail Buenrostro MD IMG XR PROCEDURES Final Resu lt from Last 3 Months Insurance [facility] [id number] Care Teams Driver Courier Relationship Specialty Start Date End Date Beck Del Rio MD [address] [place] [id number] PCP - General 06/12/22
--- OUTSIDE RECORDS SUMMARY | 2024-11-14 21:02 | XMS_ITS | Clinical Summary ---
Author Organization [facility] Address [address] [place] [address] Care Team Providers Care Parts Puller Name Role Phone Beck Del Rio MD Primary Care Provider [phone] Allergies No known active allergies Medications No known medications Active Problems Problem Noted Date Diagnosed Date Closed fracture of right distal radius 5 Encounters Date Type Department Care Team Description 10/31/2024 3:20 PM PRIVATE BRANCH EXCHANGE SERVICE ADVISER Ancillary Procedure [facility] Medical Group Imaging at [address] [phone] 10/31/2024 2:55 PM PRIVATE BRANCH EXCHANGE SERVICE ADVISER Ancillary Procedure [facility] Imaging at [address] [phone] 10/31/2024 2:45 PM PRIVATE BRANCH EXCHANGE SERVICE ADVISER Office Visit [facility] Medical [facility] Orthopedic and Sports Medicine [address] [place] [phone] Sunshine Keane PA Other closed extra-articular fracture of distal end of right radius with routine healing, subsequent encounter (Primary Dx); TFCC (triangular fibrocartilage complex) injury, right, initial encounter 10/02/2024 12:03 PM PRIVATE BRANCH EXCHANGE SERVICE ADVISER - 10/02/2024 11:59 PM PRIVATE BRANCH EXCHANGE SERVICE ADVISER Hospital Encounter [facility] Medical [facility] Orthopedics and Sports Medicine [address] [facility] [address] [phone] Discharge Disposition: Discharge to home or self care 10/02/2024 11:42 AM PRIVATE BRANCH EXCHANGE SERVICE ADVISER - 10/02/2024 11:59 PM PRIVATE BRANCH EXCHANGE SERVICE ADVISER Hospital Encounter [facility] Orthoped[facility] and Sports Medicine [address] [facility] [address], [place] [phone] Discharge Disposition: Discharge to home or self care 10/02/2024 11:00 AM PRIVATE BRANCH EXCHANGE SERVICE ADVISER Office Visit [facility] Orthopedics and Sports Medicine [address] [facility] [address] [place] [phone] Mikhail Buenrostro MD Other closed extra-articular fracture of distal end of right radius, initial encounter (Primary Dx); Right wrist pain 10/02/2024 Telephone [facility] Orthopedics and Sports Medicine [address] [facility] [address] [place] [phone] Veronika Espinosa MA from Last 3 Months Surgical History Surgery Date Site/Laterality Comments HYSTERECTOMY EAR SURGERY Medical History Medical History Date Comments Cancer, uterine (CMS/HCC) (HCC) Social History Tobacco Use Types Packs/Day Years [...] on file Sexual Orientation Not on file Obstetrics History Last Filed Vital Signs Vital Sign Reading Time Taken Comments Blood Pressure 107/72 10/31/2024 3:00 PM PRIVATE BRANCH EXCHANGE SERVICE ADVISER Pulse 108 10/31/2024 3:00 PM PRIVATE BRANCH EXCHANGE SERVICE ADVISER Temperature 36.9 C (98.4 F) 06/12/2022 10:00 PM CDT Respiratory Rate 15 06/12/2022 10:00 PM CDT Oxygen Saturation 98% 06/12/2022 10:00 PM CDT Inhaled Oxygen Concentration - - Weight 57.6 kg (127 lb) 10/31/2024 3:00 PM PRIVATE BRANCH EXCHANGE SERVICE ADVISER Height 162.6 cm (5' 4 ) 10/31/2024 3:00 PM PRIVATE BRANCH EXCHANGE SERVICE ADVISER Body Mass Index 21.8 10/31/2024 3:00 PM PRIVATE BRANCH EXCHANGE SERVICE ADVISER Plan of Treatment Health Maintenance Due Date Last Done Comments Depression Screening 2001 Hepatitis C Screening 2001 DTaP/Tdap/Td Vaccine (1 - Tdap) 2012 Varicella Vaccines (2 of 2 - 13+ 2-dose series) 04/23/2015 03/26/2015 Meningococcal B Vaccine (1 o f 2 - Standard) 2017 Hepatitis B Screening 2019 Regular Well Visit/Exam 18-64 2019 Covid-19 Vaccine (4 - 2023-2 5 season) 2024 10/03/2021, 03/22/2021, 02/22/2021 Influenza Vaccine (#1) 2024 HPV Vaccines Completed 01/09/2019, 05/24/2018, 04/21/2018 Pneumococcal vaccine <65 Aged Out No longer eligible based on patient's age to complete this topic Procedures Procedure Name Priority Date/Time Associated Diagnosis Comments XR WRIST LEFT 2 VIEWS Schedule Routine, Read Routine (OP Routine) 10/31/2024 3:27 PM PRIVATE BRANCH EXCHANGE SERVICE ADVISER Other closed extra-articular fracture of distal end of right radius with routine healing, subsequent encounter XR WRIST RIGHT 3 OR MORE VIEWS Schedule Routine, Read Routine (OP Routine) 10/31/2024 2:59 PM PRIVATE BRANCH EXCHANGE SERVICE ADVISER Other closed extra-articular fracture of distal end of right radius with routine healing, subsequent encounter XR WRIST RIGHT 3 OR MORE VIEWS Routine 10/02/2024 1:43 PM PRIVATE BRANCH EXCHANGE SERVICE ADVISER Other closed extra-articular fracture of distal end of right radius, initial encounter XR WRIST RIGHT 3 OR MORE VIEWS Routine 10/02/2024 12:00 PM PRIVATE BRANCH EXCHANGE SERVICE ADVISER Right wrist pain from Last 3 Months Results * XR Wrist Left 2 Views (10/31/2024 3:27 PM PRIVATE BRANCH EXCHANGE SERVICE ADVISER) Anatomical Region Laterality Modality Upper Extremities, Wrist Left Digital Radiography Narrative 10/31/2024 7:54 PM PRIVATE BRANCH EXCHANGE SERVICE ADVISER Consent comparison views of the left wrist were obtained further assess spacing within the distal radioulnar joint. No acute bony fractures, malalignment, or destructive osseous lesions are seen. Sunshine HYDE IMG XR PROCEDURES Final Result * XR Wrist Right 3 (Standard) (10/31/2024 2:59 PM PRIVATE BRANCH EXCHANGE SERVICE ADVISER) Anatomical Region Laterality Modality Upper Extremities, Wrist Right Digital Radiography Narrative 10/31/2024 7:54 PM PRIVATE BRANCH EXCHANGE SERVICE ADVISER Images of the right wrist reviewed, interpreted, and compared with previous views. Nondisplaced extra-articular distal radius fracture is appreciated with presence of interval callus formation. Patient has negative ulnar variance. Mikhail Buenrostro MD IMG XR PROCEDURES Final Resu lt * XR Wrist Right 3 or More Views (10/02/2024 1:43 PM PRIVATE BRANCH EXCHANGE SERVICE ADVISER) Anatomical Region Laterality Modality Upper Extremities, Wrist Right Digital Radiography Narrative 10/02/2024 3:14 PM PRIVATE BRANCH EXCHANGE SERVICE ADVISER minimally displaced metaphyseal fracture extra-articular mild dorsal displacement unchanged from pre Exos radiograph. Exos in place Mikhail Buenrostro MD IMG XR PROCEDURES Final Resu lt * XR Wrist Right 3 or More Views (10/02/2024 12:00 PM PRIVATE BRANCH EXCHANGE SERVICE ADVISER) Anatomical Region Laterality Modality Upper Extremities, Wrist Right Digital Radiography Narrative 10/02/2024 12:00 PM PRIVATE BRANCH EXCHANGE SERVICE ADVISER Right wrist show skeletally mature radiographs a minimally displaced metaphyseal fracture extra-articular mild dorsal displacement Mikhail Buenrostro MD IMG XR PROCEDURES Final Resu lt from Last [address] [place] [address] [address] [place] [id number] Care Teams Parts Puller Relationship Specialty Start Date End Date Beck Del Rio MD [address] [place] [phone] PCP - General 06/12/22
== END 2024-11-14 21:31 | disposition home or self-care (01) ==
LOC: ANHED 21:00
PROVIDERS: Emergency Provider Emergency Medicine
DX: S09.90XA Unspecified injury of head, initial encounter (principal); S16.1XXA Strain of muscle, fascia and tendon at neck level, initial encounter; W22.01XA Walked into wall, initial encounter; Y93.66 Activity, soccer
CPT/HCPCS: 70450; 72125; 99284; L0140